=== PATIENT | male | born 1955 | race Caucasian/White ===

== ENCOUNTER 2019-03-30 19:40 | Emergency (ER) | payer BC, OTHER ==
[~2019-03-30] VITALS: Ht 170.2 cm; Wt 75.0 kg
[2019-03-30] MEDS ORDERED: SODIUM CHLORIDE 0.9% 1,000 ML IV ONE (20:01)
[2019-03-30] MEDS ORDERED: ASPIRIN 325MG EC TABLET PO ONE (20:15)
[2019-03-30 20:16] VITALS: BP 127/79
[2019-03-30 20:25] LABS: BASOPHILS % 0.6 % (0.0-2.0); HEMOGLOBIN. 15.3 g/dL (14.0-18.0); MEAN CORPUSCULAR HEMOGLOBIN 27.6 pg (28.0-32.0); MEAN CORPUSCULAR VOLUME 79.4 fL (80.0-94.0); MEAN PLATELET VOLUME 9.7 fl (7.4-10.4); MONOCYTES % 10.6 % (2.0-8.0); NEUTROPHILS % 75.8 % (40.0-76.0); PLATELET 142 x1000/uL (130-400); RED BLOOD CELL COUNT 5.54 mill/uL (4.7-6.1); RED CELL DISTRIBUTION WIDTH 12.9 % (11.6-14.6)
[2019-03-30 20:26] LABS: CHLORIDE 101 mEq/L (98-107)
[2019-03-30 20:27] LABS: INR 1.1; PROTHROMBIN TIME 11.1 sec (9.6-11.0)
== END 2019-03-30 20:36 | disposition short-term general hospital (02) ==
LOC: ER 20:28
DX: I21.3 ST elevation (STEMI) myocardial infarction of unspecified site (principal); E11.65 Type 2 diabetes mellitus with hyperglycemia
CPT/HCPCS: 36415; 71045; 80053; 83880; 84484; 85025; 85610; 93005; 96360; 99291; J7030; Z7610

== ENCOUNTER 2019-04-02 21:58 | Emergency (ER) | payer BC ==
[~2019-04-02] VITALS: Ht 165.1 cm; Wt 79.0 kg
[2019-04-03 02:47] VITALS: BP 130/82
== END 2019-04-03 00:21 | disposition home or self-care (01) ==
LOC: ER 22:16
DX: T38.3X1A Poisoning by insulin and oral hypoglycemic [antidiabetic] drugs, accidental (unintentional), initial encounter (principal); X58.XXXA Exposure to other specified factors, initial encounter; E11.9 Type 2 diabetes mellitus without complications; Z98.890 Other specified postprocedural states
CPT/HCPCS: 82962; 99283; Z7610